=== PATIENT | male | born 1970 | race African-American/Black ===

== ENCOUNTER 2022-07-31 13:17 | Inpatient (IN) | payer OTHER ==
[~2022-07-31] VITALS: Ht 175.3 cm; Wt 111.1 kg
[2022-07-31] MEDS ORDERED: ASPIRIN 81MG TABLET PO ONE (16:15)
[2022-07-31 16:56] LABS: BASOPHILS % 0.5 % (0.0-2.0); EOSINOPHILS % 0.8 % (0.0-5.0); HEMATOCRIT. 46.7 % (42.0-52.0); HEMOGLOBIN. 15.8 g/dL (14.0-18.0); LYMPHOCYTES % 28.6 % (20.0-50.0); MEAN CORPUSCULAR HEMOGLOBIN 32.7 pg (28.0-32.0); MEAN CORPUSCULAR VOLUME 96.5 fL (80.0-94.0); MONOCYTES % 9.7 % (2.0-8.0); NEUTROPHILS % 60.4 % (40.0-76.0); PLATELET 236 x1000/uL (130-400); RED BLOOD CELL COUNT 4.84 mill/uL (4.7-6.1); RED CELL DISTRIBUTION WIDTH 12.7 % (11.6-14.6)
[2022-07-31 17:04] LABS: CHLORIDE 104 mEq/L (98-107)
[2022-07-31 17:11] LABS: PARTIAL THROMBOPLASTIN TIME 26.1 sec (23.4-31.0); PROTHROMBIN TIME 10.6 sec (9.6-11.0)
[2022-07-31] MEDS ORDERED: HEPARIN 5000 UNITS/ML VIAL IV ONE (17:45)
[2022-07-31] MEDS ORDERED: HEPARIN 25,000 UNITS PREMIX 250 ML IV ONE (17:45)
[2022-07-31] MEDS ORDERED: HEPARIN 60 UNITS/KG BOLUS IV NR (18:00)
[2022-07-31] MEDS ORDERED: HEPARIN 25,000 UNITS PREMIX 250 ML IV SCH (18:00)
[2022-07-31] MEDS ORDERED: NITROGLYCERIN 0.4MG TABLET SL SL ONE (20:45)
[2022-08-01] VITALS (7 sets, daily range): BP systolic 101–143; BP diastolic 50–86
[2022-08-01] MEDS ORDERED: HEPARIN BOLUS PRN aPTT 30-44 IV
[2022-08-01] MEDS ORDERED: HEPARIN BOLUS PRN aPTT <30 IV
[2022-08-01] MEDS ORDERED: HEPARIN 25,000 UNITS PREMIX 250 ML IV SCH (02:45)
[2022-08-01] MEDS ORDERED: ACETAMINOPHEN 325MG TABLET PO PRN (08:30)
[2022-08-01] MEDS ORDERED: ONDANSETRON HCL 4MG/2ML INJ IV PRN (08:30)
[2022-08-01] MEDS ORDERED: METOPROLOL TARTRATE 25MG TABLET PO SCH (11:15)
[2022-08-01 12:23] LABS: *AMPHETAMINES SCREEN URINE NEGATIVE (NEGATIVE); *BARBITURATES SCREEN URINE NEGATIVE (NEGATIVE); *BENZODIAZEPINES SCREEN URINE NEGATIVE (NEGATIVE); *COCAINE SCREEN URINE NEGATIVE (NEGATIVE); CANNABINOID URINE SCREEN PRESUMTIVE POSITIVE (NEGATIVE); METHADONE URINE SCREEN NEGATIVE (NEGATIVE); OPIATES URINE SCREEN NEGATIVE (NEGATIVE); PHENCYCLIDINE URINE SCREEN NEGATIVE (NEGATIVE)
[2022-08-01] MEDS ORDERED: IODIXANOL 320MG/ML 100 ML BOTTLE IV ONE (13:51)
[2022-08-01] MEDS ORDERED: LIDOCAINE HCL 1% 20ML VIAL (Pyxis) INJ ONE (13:53)
[2022-08-01] MEDS ORDERED: MIDAZOLAM HCL 2 MG/2 ML VIAL ONE (13:53)
[2022-08-01] MEDS ORDERED: VERAPAMIL HCL 2.5 MG/1 ML 2ML VIAL IV ONE (13:53)
[2022-08-01] MEDS ORDERED: FENTANYL CITRATE/PF 50MCG/ML 2ML VIAL ONE (13:54)
[2022-08-01] MEDS ORDERED: DIPHENHYDRAMINE 50MG/ML VIAL ONE (14:06)
[2022-08-01] MEDS ORDERED: ATROPINE SULFATE 1MG/10ML SYR IV PRN (15:15)
[2022-08-01] MEDS ORDERED: NITROGLYCERIN 0.4MG TABLET SL SL PRN (17:15)
[2022-08-01] MEDS ORDERED: CHLORHEXIDINE GLUCONATE 4% EXTERNAL USE TOP SCH (21:00)
[2022-08-01] MEDS ORDERED: BISACODYL 10MG SUPP PR PRN (21:00)
[2022-08-01] MEDS ORDERED: ASCORBIC ACID 500 MG TABLET PO SCH (21:00)
[2022-08-01] MEDS ORDERED: DIPHENHYDRAMINE 25MG CAPSULE PO PRN (21:00)
[2022-08-01] MEDS ORDERED: ATORVASTATIN CALCIUM 40MG TABLET PO SCH (21:00)
[2022-08-01] MEDS ORDERED: DOCUSATE SODIUM 100MG CAPSULE PO SCH (21:00)
[2022-08-01] MEDS: ALLOPURINOL 300 MG TABLET PO SCH (22:00)
[2022-08-02] VITALS (54 sets, daily range): BP systolic 96–295; BP diastolic 38–295
[2022-08-02] MEDS ORDERED: NICARDIPINE 40MG/200ML PREMIX 200 ML IV NR (04:00)
[2022-08-02] MEDS ORDERED: PAPAVERINE HCL 180MG in SODIUM CHLORIDE 0.9% 24ML IV NR ×2 (04:00→08:00)
[2022-08-02] MEDS ORDERED: DOBUTAMINE 250 MG in DEXT 5% WATER 230 ML IV NR (04:00)
[2022-08-02] MEDS ORDERED: DEL NIDO ELECTROLYTE-S(PH 7.4) 1,000 ML IV NR ×2 (04:00)
[2022-08-02] MEDS ORDERED: BLOOD SUGAR DIAGNOSTIC STRIP TEST ONE (04:00)
[2022-08-02] MEDS ORDERED: EPINEPHRINE 5 MG in DEXT 5% WATER 245 ML IV PRN ×2 (04:00→11:00)
[2022-08-02] MEDS ORDERED: NOREPINEPHRINE 8 MG in DEXT 5% WATER 242 ML IV NR (04:00)
[2022-08-02] MEDS ORDERED: CEFAZOLIN 2,000 MG in DEXT 5% WATER 100 ML IV NR (04:00)
[2022-08-02] MEDS: ALLOPURINOL 300 MG TABLET PO SCH (05:12)
[2022-08-02 05:59] LABS: BASOPHILS % 0.5 % (0.0-2.0); HEMATOCRIT. 42.3 % (42.0-52.0); HEMOGLOBIN. 14.6 g/dL (14.0-18.0); LYMPHOCYTES % 36.7 % (20.0-50.0); MEAN CORPUSCULAR HEMOGLOBIN 33.1 pg (28.0-32.0); MEAN CORPUSCULAR VOLUME 96.2 fL (80.0-94.0); MEAN PLATELET VOLUME 8.8 fl (7.4-10.4); MONOCYTES % 11.2 % (2.0-8.0); NEUTROPHILS % 49.6 % (40.0-76.0); PLATELET 205 x1000/uL (130-400); RED CELL DISTRIBUTION WIDTH 12.7 % (11.6-14.6)
[2022-08-02] MEDS ORDERED: DOPAMINE 400MG/250ML PREMIX 250 ML IV ONE (06:02)
[2022-08-02] MEDS ORDERED: SEVOFLURANE 250 ML LIQUID INH ONE (06:02)
[2022-08-02] MEDS ORDERED: NICARDIPINE 40MG/200ML PREMIX 200 ML IV ONE (06:02)
[2022-08-02 06:11] LABS: PROTHROMBIN TIME 10.8 sec (9.6-11.0)
[2022-08-02 06:27] LABS: CHLORIDE 104 mEq/L (98-107)
[2022-08-02] MEDS ORDERED: SKIN ADHESIVE 0.7 GM EA TOP ONE (06:49)
[2022-08-02] MEDS ORDERED: THROMBIN (BOVINE) 5000 UNITS/VIAL TOP ONE ×2 (06:49)
[2022-08-02] MEDS ORDERED: POLYMYXIN B SULFATE 500000 UNITS/VIAL ONE (06:49)
[2022-08-02] MEDS ORDERED: HEPARIN 1000 UNITS/ML 10ML ONE (06:56)
[2022-08-02] MEDS ORDERED: ROCURONIUM BROMIDE 10MG/ML VIAL 5ML IV ONE ×2 (07:46→08:59)
[2022-08-02] MEDS ORDERED: FENTANYL CITRATE/PF 50MCG/ML 2ML VIAL ONE (08:20)
[2022-08-02] MEDS ORDERED: CHLORHEXIDINE GLUCONATE 4% EXTERNAL USE TOP SCH (09:00)
[2022-08-02] MEDS ORDERED: MAGNESIUM 2 G PREMIX 50 ML IV PRN (09:15)
[2022-08-02] MEDS ORDERED: MAGNESIUM 1 G PREMIX 100 ML IV PRN (09:15)
[2022-08-02] MEDS ORDERED: MAGNESIUM SULFATE 3 GM in DEXT 5% WATER 100 ML IV PRN (09:15)
[2022-08-02] MEDS ORDERED: HEPARIN 10,000 UNITS/ML VIAL ONE (10:00)
[2022-08-02] MEDS ORDERED: CALCIUM CHLORIDE 1GM/10ML SYR IV ONE (10:00)
[2022-08-02] MEDS ORDERED: ALBUMIN HUMAN 25GM/100ML (25%) IV ONE (10:00)
[2022-08-02] MEDS ORDERED: MAGNESIUM SULFATE 5GM/10ML VIAL IV ONE (10:00)
[2022-08-02] MEDS ORDERED: POTASSIUM CHLORIDE 40MEQ/20ML INJ IV ONE (10:00)
[2022-08-02] MEDS ORDERED: AMIODARONE HCL 900 MG in DEXT 5% WATER 500 ML IV ONE (10:15)
[2022-08-02] MEDS ORDERED: NEOSTIGMINE METHYLSULFATE 1MG/ML 10 ML VIAL ONE (10:48)
[2022-08-02] MEDS ORDERED: GLYCOPYRROLATE 0.2 MG/ML 2ML VIAL ONE ×4 (10:49→11:03)
[2022-08-02] MEDS ORDERED: OXYCODONE HCL/ACETAMINOPHEN 5/325MG TABLET PO PRN (11:00)
[2022-08-02] MEDS ORDERED: CALCIUM CHLORIDE 3,000 MG in DEXT 5% WATER 250 ML IV PRN (11:00)
[2022-08-02] MEDS ORDERED: ALBUMIN HUMAN 25GM/100ML (25%) IV PRN (11:00)
[2022-08-02] MEDS ORDERED: ONDANSETRON HCL 4MG/2ML INJ IV PRN (11:00)
[2022-08-02] MEDS ORDERED: ACETAMINOPHEN 325MG TABLET PO PRN (11:00)
[2022-08-02] MEDS ORDERED: SODIUM CHLORIDE 0.9% 500 ML IV PRN (11:00)
[2022-08-02] MEDS ORDERED: DOPAMINE 400MG/250ML PREMIX 250 ML IV PRN (11:00)
[2022-08-02] MEDS ORDERED: KETOROLAC 30MG/ML VIAL IV PRN (11:00)
[2022-08-02] MEDS ORDERED: ALBUMIN HUMAN 12.5G/250ML (5%) IV PRN (11:00)
[2022-08-02] MEDS ORDERED: CALCIUM CHLORIDE 5,000 MG in DEXT 5% WATER 500 ML IV PRN (11:00)
[2022-08-02] MEDS ORDERED: NOREPINEPHRINE 8MG/250ML PMX 250 ML IV SCH (11:15)
[2022-08-02] MEDS ORDERED: CLOPIDOGREL 75MG TABLET PO NR (11:15)
[2022-08-02] MEDS ORDERED: VASOPRESSIN 20 UNIT/ML 1ML ONE (11:29)
[2022-08-02] MEDS ORDERED: DEXAMETHASONE 4MG/ML 1ML VIAL ONE (11:29)
[2022-08-02] MEDS ORDERED: DEXMEDETOMIDINE 400 MCG/100 ML 100 ML IV ONE (11:29)
[2022-08-02] MEDS ORDERED: PROTAMINE SULFATE 10MG/ML VIAL 25ML IV ONE (11:29)
[2022-08-02] MEDS: DEXT 5%/0.45% NACL 1000ML 1,000 ML IV SCH (11:30)
[2022-08-02] MEDS ORDERED: NOREPINEPHRINE 8 MG in DEXTROSE 5% WATER 250 ML IV PRN (11:45)
[2022-08-02 11:48] LABS: BG BASE EXCESS -6.4 mmol/L (-2.0-2.0); BG CARBOXYHEMOGLOBIN 0.6 % (0.5-1.5); BG DEOXYHEMOGLOBIN 7.8 % (0.0-5.0); BG FRACTION INSPIRED OXYGEN 100; BG HCO3 ACT 18.9 mmol/L (22.0-26.0); BG METHEMOGLOBIN 0.3 % (0.0-1.5); BG OXYGEN SATURATION 92.1 % (92.0-98.5); BG OXYHEMOGLOBIN 91.3 % (94.0-97.0); BG PCO2 37.1 mmHg (35.0-45.0); BG PH 7.325 (7.350-7.450); BG PO2 67.2 mmHg (75.0-100.0); BG SAMPLE SITE ALINE; BG TOTAL HEMOGLOBIN 15.3 g/dL (12.0-18.0); BG VENT MODE MASK - NRB
[2022-08-02] MEDS: INSULIN REGULAR 100U/100ML PMX 100 ML IV NR ×2 (11:56→23:23)
[2022-08-02] MEDS ORDERED: DEXTROSE 50% WATER 50ML SYRINGE IV PRN ×2 (12:00)
[2022-08-02] MEDS ORDERED: AMIODARONE HCL 900 MG in DEXT 5% WATER 482 ML IV SCH (12:00)
[2022-08-02 12:01] LABS: BASOPHILS % 0.3 % (0.0-2.0); EOSINOPHILS % 0.4 % (0.0-5.0); HEMATOCRIT. 41.5 % (42.0-52.0); HEMOGLOBIN. 14.1 g/dL (14.0-18.0); LYMPHOCYTES % 14.1 % (20.0-50.0); MEAN CORPUSCULAR VOLUME 97.1 fL (80.0-94.0); MEAN PLATELET VOLUME 8.9 fl (7.4-10.4); MONOCYTES % 3.7 % (2.0-8.0); NEUTROPHILS % 81.5 % (40.0-76.0); PLATELET 239 x1000/uL (130-400); RED BLOOD CELL COUNT 4.27 mill/uL (4.7-6.1); RED CELL DISTRIBUTION WIDTH 12.9 % (11.6-14.6)
[2022-08-02] MEDS: BLOOD SUGAR DIAGNOSTIC STRIP TEST SCH ×12 (12:02→23:26)
[2022-08-02 12:55] LABS: CHLORIDE 104 mEq/L (98-107)
[2022-08-02] MEDS: KETOROLAC 15MG/ML VIAL IV PRN (13:56)
[2022-08-02] MEDS ORDERED: KCL 10MEQ/50ML PREMIX 100 ML IV PRN (14:00)
[2022-08-02] MEDS ORDERED: KCL 10MEQ/50ML PREMIX 150 ML IV PRN (14:00)
[2022-08-02] MEDS: KCL 10MEQ/50ML PREMIX 200 ML IV PRN ×4 (14:01→18:58)
[2022-08-02] MEDS: OXYCODONE HCL/ACETAMINOPHEN 5/325MG TABLET PO PRN ×2 (15:57→19:27)
[2022-08-02] MEDS: BACITRACIN 15GM TUBE TOP SCH (17:00)
[2022-08-02] MEDS: DOCUSATE SODIUM 100MG CAPSULE PO SCH (17:02)
[2022-08-02] MEDS ORDERED: CALCIUM CHLORIDE 5,000 MG in DEXT 5% WATER 500 ML IV ONE (17:30)
[2022-08-02 17:56] LABS: CHLORIDE 110 mEq/L (98-107)
[2022-08-02] MEDS ORDERED: CEFAZOLIN 1000MG PREMIX 50 ML IV SCH (18:00)
[2022-08-02 18:01] LABS: HEMATOCRIT. 44.2 % (42.0-52.0); HEMOGLOBIN. 14.9 g/dL (14.0-18.0); MEAN CORPUSCULAR HEMOGLOBIN 32.3 pg (28.0-32.0); MEAN CORPUSCULAR VOLUME 95.9 fL (80.0-94.0); MEAN PLATELET VOLUME 9.4 fl (7.4-10.4); PLATELET 225 x1000/uL (130-400); RED BLOOD CELL COUNT 4.61 mill/uL (4.7-6.1); RED CELL DISTRIBUTION WIDTH 12.8 % (11.6-14.6)
[2022-08-02] MEDS: CEFAZOLIN 1000MG PREMIX 50 ML IV SCH (18:22)
[2022-08-02 19:42] LABS: PLATELET ESTIMATE NORMAL
[2022-08-02] MEDS: IPRATROPIUM/ALBUTEROL 0.5-3(2.5)MG/3ML NEB HHN SCH ×2 (20:30→23:33)
[2022-08-02] MEDS: MAGNESIUM SULFATE 3 GM in DEXT 5% WATER 100 ML IV PRN (20:56)
[2022-08-02] MEDS: AMIODARONE HCL 200 MG TABLET PO SCH (20:59)
[2022-08-02] MEDS: ATORVASTATIN CALCIUM 40MG TABLET PO SCH (20:59)
[2022-08-03] VITALS (87 sets, daily range): BP systolic 81–150; BP diastolic 49–101
[2022-08-03] MEDS: BLOOD SUGAR DIAGNOSTIC STRIP TEST SCH ×21 (00:20→21:33)
[2022-08-03] MEDS ORDERED: BLOOD SUGAR DIAGNOSTIC STRIP TEST SCH (00:30)
[2022-08-03] MEDS ORDERED: INSULIN REGULAR 100U/100ML PMX 100 ML IV SCH (00:30)
[2022-08-03] MEDS ORDERED: DEXTROSE 50% WATER 50ML SYRINGE IV PRN ×3 (00:30→20:00)
[2022-08-03] MEDS ORDERED: NOREPINEPHRINE 8MG/250ML PMX 250 ML IV PRN (00:45)
[2022-08-03] MEDS ORDERED: NOREPINEPHRINE 8 MG in DEXTROSE 5% WATER 250 ML IV PRN (01:00)
[2022-08-03] MEDS: INSULIN REGULAR 100U/100ML PMX 100 ML IV SCH ×2 (01:07→19:28)
[2022-08-03] MEDS: KETOROLAC 15MG/ML VIAL IV PRN (01:15)
[2022-08-03 01:36] LABS: HEMATOCRIT. 42.3 % (42.0-52.0); HEMOGLOBIN. 14.2 g/dL (14.0-18.0); MEAN CORPUSCULAR HEMOGLOBIN 32.4 pg (28.0-32.0); MEAN CORPUSCULAR VOLUME 96.8 fL (80.0-94.0); MEAN PLATELET VOLUME 9.1 fl (7.4-10.4); PLATELET 217 x1000/uL (130-400); RED BLOOD CELL COUNT 4.37 mill/uL (4.7-6.1)
[2022-08-03 01:43] LABS: CHLORIDE 104 mEq/L (98-107)
[2022-08-03] MEDS: MAGNESIUM 2 G PREMIX 50 ML IV PRN ×2 (02:23→06:17)
[2022-08-03] MEDS: CEFAZOLIN 1000MG PREMIX 50 ML IV SCH ×3 (02:26→17:45)
[2022-08-03] MEDS: IPRATROPIUM/ALBUTEROL 0.5-3(2.5)MG/3ML NEB HHN SCH ×5 (03:00→20:18)
[2022-08-03 03:02] LABS: PLATELET ESTIMATE NORMAL
[2022-08-03 05:14] LABS: BASOPHILS % 0.1 % (0.0-2.0); EOSINOPHILS % 0.1 % (0.0-5.0); HEMATOCRIT. 42.2 % (42.0-52.0); HEMOGLOBIN. 14.3 g/dL (14.0-18.0); LYMPHOCYTES % 7.1 % (20.0-50.0); MEAN CORPUSCULAR HEMOGLOBIN 32.5 pg (28.0-32.0); MEAN CORPUSCULAR VOLUME 95.8 fL (80.0-94.0); MEAN PLATELET VOLUME 9.2 fl (7.4-10.4); MONOCYTES % 10.5 % (2.0-8.0); NEUTROPHILS % 82.2 % (40.0-76.0); PLATELET 218 x1000/uL (130-400); RED CELL DISTRIBUTION WIDTH 12.8 % (11.6-14.6)
[2022-08-03 05:16] LABS: CHLORIDE 103 mEq/L (98-107)
[2022-08-03] MEDS ORDERED: FUROSEMIDE 40MG/4ML VIAL IVP SCH (07:45)
[2022-08-03] MEDS ORDERED: ASPIRIN 81MG EC TABLET PO SCH (09:00)
[2022-08-03] MEDS: CLOPIDOGREL 75MG TABLET PO SCH (09:08)
[2022-08-03] MEDS: FAMOTIDINE 20MG/2ML VIAL IV SCH (09:08)
[2022-08-03] MEDS: DOCUSATE SODIUM 100MG CAPSULE PO SCH ×2 (09:08→16:32)
[2022-08-03] MEDS: AMIODARONE HCL 200 MG TABLET PO SCH ×2 (09:09→21:06)
[2022-08-03] MEDS: BACITRACIN 15GM TUBE TOP SCH ×2 (09:09→16:31)
[2022-08-03] MEDS ORDERED: IPRATROPIUM/ALBUTEROL 0.5-3(2.5)MG/3ML NEB HHN PRN (09:45)
[2022-08-03 10:02] LABS: BG BASE EXCESS 0.4 mmol/L (-2.0-2.0); BG CARBOXYHEMOGLOBIN 0.6 % (0.5-1.5); BG DEOXYHEMOGLOBIN 4.7 % (0.0-5.0); BG HCO3 ACT 24.3 mmol/L (22.0-26.0); BG METHEMOGLOBIN 0.4 % (0.0-1.5); BG OXYGEN SATURATION 95.3 % (92.0-98.5); BG OXYHEMOGLOBIN 94.3 % (94.0-97.0); BG PCO2 36.9 mmHg (35.0-45.0); BG PH 7.436 (7.350-7.450); BG PO2 73.3 mmHg (75.0-100.0); BG SAMPLE SITE RIGHT RADIAL; BG TOTAL HEMOGLOBIN 15.7 g/dL (12.0-18.0); BG VENT MODE NASAL CANNULA
[2022-08-03] MEDS ORDERED: ZOLPIDEM TARTRATE 5MG TABLET PO PRN (11:15)
[2022-08-03] MEDS: DEXT 5%/0.45% NACL 1000ML 1,000 ML IV SCH (11:23)
[2022-08-03] MEDS ORDERED: ALBUMIN HUMAN 25GM/500ML (5%) IV NR (12:45)
[2022-08-03 12:55] LABS: BASOPHILS % 0.1 % (0.0-2.0); HEMATOCRIT. 43.1 % (42.0-52.0); HEMOGLOBIN. 14.4 g/dL (14.0-18.0); LYMPHOCYTES % 8.6 % (20.0-50.0); MEAN CORPUSCULAR HEMOGLOBIN 32.7 pg (28.0-32.0); MEAN CORPUSCULAR VOLUME 97.6 fL (80.0-94.0); MONOCYTES % 9.5 % (2.0-8.0); NEUTROPHILS % 81.8 % (40.0-76.0); PLATELET 210 x1000/uL (130-400); RED BLOOD CELL COUNT 4.41 mill/uL (4.7-6.1); RED CELL DISTRIBUTION WIDTH 12.9 % (11.6-14.6)
[2022-08-03 13:12] LABS: CHLORIDE 99 mEq/L (98-107)
[2022-08-03] MEDS: MAGNESIUM 1 G PREMIX 100 ML IV PRN ×2 (13:35→19:22)
[2022-08-03] MEDS ORDERED: ALBUMIN HUMAN 25GM/100ML (25%) IV NR (19:45)
[2022-08-03] MEDS ORDERED: NALOXONE HCL 0.4MG/ML VIAL IV PRN (19:45)
[2022-08-03] MEDS ORDERED: FUROSEMIDE 100MG/10ML VIAL IVP NR (19:45)
[2022-08-03] MEDS: ATORVASTATIN CALCIUM 40MG TABLET PO SCH (21:05)
[2022-08-03] MEDS: INSULIN LISPRO 100 UNITS/ML SUBCUT SCH (21:35)
[2022-08-03] MEDS: ACETAMINOPHEN 325MG TABLET PO PRN (21:43)
[2022-08-04] VITALS (29 sets, daily range): BP systolic 92–127; BP diastolic 60–84
[2022-08-04] MEDS: IPRATROPIUM/ALBUTEROL 0.5-3(2.5)MG/3ML NEB HHN SCH ×6 (00:23→23:46)
[2022-08-04] MEDS ORDERED: DEXT 5%/0.45% NACL 1000ML 1,000 ML IV ONE (00:45)
[2022-08-04 05:38] LABS: BASOPHILS % 0.1 % (0.0-2.0); HEMATOCRIT. 36.8 % (42.0-52.0); HEMOGLOBIN. 12.5 g/dL (14.0-18.0); LYMPHOCYTES % 11.2 % (20.0-50.0); MEAN CORPUSCULAR HEMOGLOBIN 33.5 pg (28.0-32.0); MEAN CORPUSCULAR VOLUME 98.1 fL (80.0-94.0); MEAN PLATELET VOLUME 9.5 fl (7.4-10.4); MONOCYTES % 11.2 % (2.0-8.0); NEUTROPHILS % 77.5 % (40.0-76.0); PLATELET 181 x1000/uL (130-400); RED BLOOD CELL COUNT 3.75 mill/uL (4.7-6.1); RED CELL DISTRIBUTION WIDTH 12.8 % (11.6-14.6)
[2022-08-04 05:54] LABS: CHLORIDE 99 mEq/L (98-107)
[2022-08-04] MEDS: MAGNESIUM SULFATE 3 GM in DEXT 5% WATER 100 ML IV PRN (07:15)
[2022-08-04] MEDS: BLOOD SUGAR DIAGNOSTIC STRIP TEST SCH ×4 (07:16→20:39)
[2022-08-04] MEDS: INSULIN LISPRO 100 UNITS/ML SUBCUT SCH (07:31)
[2022-08-04] MEDS: AMIODARONE HCL 200 MG TABLET PO SCH ×2 (08:34→20:39)
[2022-08-04] MEDS: CLOPIDOGREL 75MG TABLET PO SCH (08:34)
[2022-08-04] MEDS: DOCUSATE SODIUM 100MG CAPSULE PO SCH ×2 (08:35→17:14)
[2022-08-04] MEDS: ASPIRIN 81MG TABLET PO SCH (08:35)
[2022-08-04] MEDS: CARVEDILOL 3.125 MG TABLET PO SCH ×2 (08:35→20:39)
[2022-08-04] MEDS: FAMOTIDINE 20MG/2ML VIAL IV SCH (08:35)
[2022-08-04] MEDS: BACITRACIN 15GM TUBE TOP SCH ×2 (08:36→17:00)
[2022-08-04 18:22] LABS: BASOPHILS % 0.2 % (0.0-2.0); EOSINOPHILS % 0.1 % (0.0-5.0); HEMATOCRIT. 40.3 % (42.0-52.0); HEMOGLOBIN. 13.8 g/dL (14.0-18.0); LYMPHOCYTES % 11.9 % (20.0-50.0); MEAN CORPUSCULAR HEMOGLOBIN 33.1 pg (28.0-32.0); MEAN CORPUSCULAR VOLUME 96.9 fL (80.0-94.0); MEAN PLATELET VOLUME 9.7 fl (7.4-10.4); MONOCYTES % 11.1 % (2.0-8.0); NEUTROPHILS % 76.7 % (40.0-76.0); PLATELET 191 x1000/uL (130-400); RED BLOOD CELL COUNT 4.16 mill/uL (4.7-6.1); RED CELL DISTRIBUTION WIDTH 12.9 % (11.6-14.6)
[2022-08-04 18:47] LABS: CHLORIDE 99 mEq/L (98-107)
[2022-08-04] MEDS: ACETAMINOPHEN 325MG TABLET PO PRN (20:37)
[2022-08-04] MEDS: ATORVASTATIN CALCIUM 40MG TABLET PO SCH (20:38)
[2022-08-05] VITALS (8 sets, daily range): BP systolic 102–132; BP diastolic 62–77
[2022-08-05] MEDS: IPRATROPIUM/ALBUTEROL 0.5-3(2.5)MG/3ML NEB HHN SCH ×3 (03:44→12:58)
[2022-08-05 06:37] LABS: BASOPHILS % 0.3 % (0.0-2.0); EOSINOPHILS % 0.3 % (0.0-5.0); HEMATOCRIT. 37.2 % (42.0-52.0); HEMOGLOBIN. 12.6 g/dL (14.0-18.0); LYMPHOCYTES % 11.2 % (20.0-50.0); MEAN CORPUSCULAR HEMOGLOBIN 32.8 pg (28.0-32.0); MEAN CORPUSCULAR VOLUME 96.5 fL (80.0-94.0); MEAN PLATELET VOLUME 9.6 fl (7.4-10.4); MONOCYTES % 13.8 % (2.0-8.0); NEUTROPHILS % 74.4 % (40.0-76.0); PLATELET 205 x1000/uL (130-400); RED BLOOD CELL COUNT 3.86 mill/uL (4.7-6.1); RED CELL DISTRIBUTION WIDTH 12.9 % (11.6-14.6)
[2022-08-05 06:55] LABS: CHLORIDE 100 mEq/L (98-107)
[2022-08-05] MEDS: BLOOD SUGAR DIAGNOSTIC STRIP TEST SCH (07:05)
[2022-08-05] MEDS: ASPIRIN 81MG TABLET PO SCH (08:56)
[2022-08-05] MEDS: CLOPIDOGREL 75MG TABLET PO SCH (08:56)
[2022-08-05] MEDS: DOCUSATE SODIUM 100MG CAPSULE PO SCH (08:57)
[2022-08-05] MEDS: FAMOTIDINE 20MG/2ML VIAL IV SCH (08:57)
[2022-08-05] MEDS: CARVEDILOL 3.125 MG TABLET PO SCH (08:57)
[2022-08-05] MEDS: AMIODARONE HCL 200 MG TABLET PO SCH (08:59)
[2022-08-05] MEDS: BACITRACIN 15GM TUBE TOP SCH (09:00)
[2022-08-05] MEDS ORDERED: POLYETHYLENE GLYCOL 3350 (17GM) 1 DOSE PACK PO ONE (10:30)
[2022-08-05] MEDS ORDERED: COR3 PO (10:36)
[2022-08-05] MEDS ORDERED: TOPUD PO (10:36)
[2022-08-05] MEDS ORDERED: AMI2 PO (10:36)
[2022-08-05] MEDS ORDERED: LIP40 PO (10:36)
[2022-08-05] MEDS ORDERED: CLOP75TA15 PO (10:36)
[2022-08-05] MEDS ORDERED: ASPI-1160 PO (10:36)
== END 2022-08-05 18:49 | disposition home or self-care (01) | DRG 165 ==
LOC: ER 13:49 → 8WST 19:45 → EDBEDREQTM 19:49 → EDBEDREQ 19:49 → ENRESERV 22:02 → 3WST 08-01 14:55 → CVICU 08-02 11:29 → 3WST 08-04 10:58
PROVIDERS: ADMIT Internal Medicine; ATTEND Internal Medicine
PROC: 4A023N7 Measurement of Cardiac Sampling and Pressure, Left Heart, Percutaneous Approach (ICD-10-PCS; 2022-08-01)
PROC: B211YZZ Fluoroscopy of Multiple Coronary Arteries using Other Contrast (ICD-10-PCS; 2022-08-01)
PROC: 02100Z9 Bypass Coronary Artery, One Artery from Left Internal Mammary, Open Approach (ICD-10-PCS; principal; 2022-08-02)
PROC: 021209W Bypass Coronary Artery, Three Arteries from Aorta with Autologous Venous Tissue, Open Approach (ICD-10-PCS; 2022-08-02)
PROC: 06BQ4ZZ Excision of Left Saphenous Vein, Percutaneous Endoscopic Approach (ICD-10-PCS; 2022-08-02)
DX: I21.4 Non-ST elevation (NSTEMI) myocardial infarction (principal); J96.00 Acute respiratory failure, unspecified whether with hypoxia or hypercapnia; I25.10 Atherosclerotic heart disease of native coronary artery without angina pectoris; E66.9 Obesity, unspecified; F17.210 Nicotine dependence, cigarettes, uncomplicated; I16.0 Hypertensive urgency; I10 Essential (primary) hypertension; F12.90 Cannabis use, unspecified, uncomplicated; Z20.822 Contact with and (suspected) exposure to COVID-19; Z79.899 Other long term (current) drug therapy; Z82.49 Family history of ischemic heart disease and other diseases of the circulatory system; Z68.36 Body mass index [BMI] 36.0-36.9, adult
CPT/HCPCS: 36415; 36600; 71045; 80048; 80053; 80061; 80305; 82375; 82805; 82962; 83036; 83735; 83880; 84484; 85025; 85347; 86850; 86900; 86920; 87426; 93005; 93306; 93458; 93880; 94640; 97110; 97116; 97162; 97166; 97530; 97535; 99291; A6261; C1725; C1729; C1751; C1758; C1769; C1887; C1893; J0282; J0690; J1100; J1200; J1250; J1265; J1644; J1815; J1885; J1940; J2250; J2405; J2440; J2710; J2720; J3010; J3475; J3480; J3490; J7060; L3908; P9041; P9047; Q9957; Q9967

== ENCOUNTER 2022-08-25 12:16 | Emergency (ER) | payer OTHER ==
[~2022-08-25] VITALS: Ht 175.3 cm; Wt 110.0 kg
[~2022-08-25 12:16] MED LIST: AMI2 PO; ASPI-1160 PO; CLOP75TA15 PO; COR3 PO; LIP40 PO; TOPUD PO
[2022-08-25] MEDS ORDERED: SULF1TAB48 MT (20:03)
[2022-08-25] MEDS: SULFAMETHOXAZOLE/TRIMETHOPRIM 800/160MG TABLET PO NR ×2 (20:15→20:32)
[2022-08-25 20:33] VITALS: BP 112/78
== END 2022-08-25 20:35 | disposition home or self-care (01) ==
LOC: ER 12:16
DX: L03.115 Cellulitis of right lower limb (principal); Z13.9 Encounter for screening, unspecified
CPT/HCPCS: 76881; 93971; 99284